=== PATIENT | female | born 1980 | race African-American/Black ===

== ENCOUNTER 2018-07-04 08:56 | Emergency (ER) | payer OTHER ==
[~2018-07-04] VITALS: Ht 167.6 cm; Wt 97.5 kg
[~2018-07-04 08:56] MED LIST: ADIPEX-P37.5 MG PO; ALPRAZOLAM ER1 MG PO; AMITRIPTYLINE H25 M2 PO; CELEXA 20 MG TA20 M1 PO; CLONIDINE HCL0.2 M2 PO; COZAAR 25 MG TA25 M1; FAMCYCLOVIR 50500 M1 PO; FLAGYL500 MG PO; HYDROCHLOROTHIA50 MG PO; HYDROCODON-ACE1 EAC1 PO; HYDROCODONE-AP1 EAC6 PO; LISINOPRIL40 MG PO; METRONIDAZOLE500 M4 PO; NORCO 5-325 TA1 EACH PO; POTASSIUM20; PREDNISONE 20 M20 M1 PO; PROMETHAZINE-C120 ML PO; PROVENTIL HFA6.7 G1 INH; SPIRONOLACTONE25 M1 PO; TIZANIDINE HCL4 MG PO; TRAZODONE 150150 M1 PO; VENTOLIN HFA 1818 GM INH; ZPAK PO
[2018-07-04] MEDS ORDERED: COZAAR 25 MG TA25 M2 PO (09:12)
[2018-07-04 09:34] LABS: URINE BILIRUBIN NEGATIVE (Negative); URINE BLOOD NEGATIVE (Negative); URINE CLARITY CLEAR; URINE COLOR YELLOW; URINE GLUCOSE-RANDOM* 2+ (Negative); URINE KETONES NEGATIVE (Negative); URINE LEUKOCYTES-REFLEX NEGATIVE (Negative); URINE NITRITE-REFLEX NEGATIVE (Negative); URINE PROTEIN (DIPSTICK) TRACE (Negative); URINE SPECIFIC GRAVITY 1.015 (1.005-1.035); URINE UROBILINOGEN 0.2 E.U./dl (0.2-1.0)
[2018-07-04 09:42] LABS: AMP/METHAMP Negative (Negative); BARBITURATES Negative (Negative); BENZODIAZEPINES Negative (Negative); COCAINE Negative (Negative); METHADONE Negative (Negative); OPIATES Negative (Negative); PCP Negative (Negative)
[2018-07-04] MEDS ORDERED: IBUPROFEN 800800 M1 PO (10:00)
[2018-07-04] MEDS ORDERED: ORPHENADRINE C100 M2 PO (10:00)
[2018-07-04] MEDS ORDERED: ULTRAM 50MG TAB50 MG PO (10:00)
[2018-07-04 10:51] VITALS: BP 126/76
== END 2018-07-04 10:59 | disposition home or self-care (01) ==
LOC: ER 08:56
PROVIDERS: Emergency Medicine
DX: G89.29 Other chronic pain (principal); M54.5 Low back pain; I10 Essential (primary) hypertension; J45.909 Unspecified asthma, uncomplicated; Z90.710 Acquired absence of both cervix and uterus; Z88.8 Allergy status to other drugs, medicaments and biological substances

== ENCOUNTER 2018-11-02 14:24 | Emergency (ER) | payer OTHER ==
[~2018-11-02] VITALS: Ht 165.1 cm; Wt 93.0 kg
[~2018-11-02 14:24] MED LIST changes: +COZAAR 25 MG TA25 M2 PO; +IBUPROFEN 800800 M1 PO; +ORPHENADRINE C100 M2 PO; +ULTRAM 50MG TAB50 MG PO
[2018-11-02] MEDS ORDERED: LISINOPRIL10 MG PO (14:32)
[2018-11-02] MEDS ORDERED: MOBIC7.5 MG PO (15:37)
[2018-11-02] MEDS ORDERED: CYCLOBENZAPRINE5 MG PO (15:37)
[2018-11-02 16:55] VITALS: BP 140/95
== END 2018-11-02 16:25 | disposition home or self-care (01) ==
LOC: ER 14:24
DX: S20.221A Contusion of right back wall of thorax, initial encounter (principal); J45.909 Unspecified asthma, uncomplicated; Z88.8 Allergy status to other drugs, medicaments and biological substances; Z86.2 Personal history of diseases of the blood and blood-forming organs and certain disorders involving the immune mechanism; Z98.890 Other specified postprocedural states; Z90.711 Acquired absence of uterus with remaining cervical stump; V43.52XA Car driver injured in collision with other type car in traffic accident, initial encounter; Y93.89 Activity, other specified; Y92.89 Other specified places as the place of occurrence of the external cause; Y99.8 Other external cause status